=== PATIENT | male | born 1950 | race Caucasian/White ===

== ENCOUNTER 2019-10-21 06:22 | Inpatient (IN) | payer MEDICARE ==
--- NOTE | 2019-10-10 15:05 | HP ---
AMENDED REPORT NOW INCLUDES DESIGNATED COSIGNER CC: Dr. Davon Ferrell; Dr. Debbie Stanley * PREOPERATIVE HISTORY AND PHYSICAL: DATE OF ADMISSION/SURGERY: 10/21/19 This patient is scheduled for AA admission by Dr. Nieves on 10/21/19. DATE OF PREOPERATIVE HISTORY AND PHYSICAL EXAMINATION: , 10/10/19. ATTENDING SURGEON: Dr. Tejinder Nieves * (dictated by Rachael Carias NP). CHIEF COMPLAINT: Neuroendocrine tumor of the terminal ileum. HISTORY OF PRESENT ILLNESS: The patient is a 69-year-old male recently evaluated by Dr. Nieves with a newly diagnosed neuroendocrine tumor of the terminal ileum. This was found on routine screening colonoscopy on 09/10/19 as a firm, partially obstructing mass of the terminal ileum and biopsy revealed a neuroendocrine tumor. He denies any gastrointestinal complaints, specifically no diarrhea or constipation; he denies any flushing. He was seen by Dr. Debbie Stanley at [facility] and CT workup revealed multiple lung nodules bilaterally suspicious for metastatic disease and therefore, the patient is scheduled for CT -guided biopsy of the lung nodules on 10/14/19. Dr. Nieves has discussed the findings with the patient and has recommended robotic right colectomy; he discussed the nature of the surgery, the relevant risks and benefits and today, I discussed the typical postoperative hospitalization and care. The patient and his have had a chance to ask questions and stated that they understand the information and are satisfied with the answers given to their questions. The patient will sign surgical consent on the day of surgery. PAST MEDICAL HISTORY: Hypertension, hyperlipidemia, and mild asthma related to cat dander. PAST SURGICAL HISTORY: Zavalla teeth extraction. MEDICATIONS: 1. Atorvastatin 80 mg 1 tablet p.o. daily. 2. Lisinopril/hydrochlorothiazide 20/12.5 mg 1 tablet p.o. daily. 3. Flovent inhaler b.i.d. 4. ProAir inhaler 2 puffs every 4 hours p.r.n. ALLERGIES: No known drug allergies. FAMILY HISTORY: Father due to lung cancer. Mother with a history of diabetes. No known anesthesia complications, bleeding tendencies, or clotting disorders. SOCIAL HISTORY: He is . He has never been a smoker. He drinks alcohol socially and denies the use of other substances. REVIEW OF SYSTEMS: A 14-point review of systems was negative other than as mentioned in history of present illness. General: No previous anesthesia complications. No history of blood clots or bleeding tendencies. PHYSICAL EXAMINATION GENERAL SURVEY: The patient is a 69-year-old male, well developed, well nourished, in no acute distress. VITAL SIGNS: Height 72 inches, weight 176 pounds, body mass index 23.9. Blood pressure 142/84, pulse 84 and regular, respiratory rate 16, temperature 97.8 tympanic. HEENT: Benign. NECK: Supple. No cervical lymphadenopathy or thyromegaly. BACK: No CVA tenderness. LUNGS: Breath sounds bilaterally clear and equal. HEART: Regular rate and rhythm. No murmurs or rubs. ABDOMEN: Active bowel sounds. Soft, nondistended, nontender throughout. No obvious masses, organomegaly or evidence of ventral hernia. GENITALIA: Exam is deferred. RECTAL: Exam is deferred. EXTREMITIES: Warm without edema or skin ulceration. NEUROLOGIC: Alert and oriented x3. Steady gait. PSYCHIATRIC: Cooperative and verbalizes understanding of our discussion today. SKIN: Warm, dry, intact. IMPRESSION: Neuroendocrine tumor of the terminal ileum. PLAN: AA admission to Dr. Nieves's service on 10/21/19, for robotic right colectomy. The patient will take a bowel cleansing prep on the day before surgery consisting of clear liquid diet, CoLyte laxative, metronidazole, and neomycin tablets. CONCEPCION CARIAS NP [id number]/[facility] #: [id number] KALYN
[~2019-10-21 06:22] MED LIST: ERTApenem(*) 1 GM in NS 0.9% 50 ML* 50 ML IVPB SCH; Famotidine IV* 10 MG/ML 2 ML (20 mg) IV ONE
--- OUTSIDE RECORDS SUMMARY | 2019-10-21 06:25 | XMS REPORT | Continuity of Care Document ---
:1950 External Reference #:[id number] Author Name Tejinder Nieves MD (transmitted by agent of provider Jennyfer Jason) Address [address] [place] [id number] Care Team Providers Name Role Phone Davon Ferrell MD - Family Care Team Information Casino Cage Manager [phone] Medicine Problems Description No Information Available Social History Type Date Description Comments Sex Unknown ETOH Use consumes 4 beers per week Tobacco Use Start: Unknown Patient has never smoked Recreational Drug Use Denies Drug Use Smoking Status Reviewed: 10/03/19 Patient has never smoked Exercise Type/Frequency Exercises regularly Allergies, Adverse Reactions, Alerts Description No Known Drug Allergies Medications Active Medications SIG Qnty Indications Ordering Provider Date Atorvastatin Calcium 1 by mouth every Unknown 80mg day Tablets Lisinopril-Hydrochlorot 1 by mouth every Unknown hiazide day 20-12.5mg Tablets Flovent HFA 2 puffs twice Unknown 110mcg/Act daily Aerosol Proair HFA 2 puffs every 4 Unknown 108(90Base) hours as needed mcg/Act Aerosol Immunizations Description No Information Available Vital Signs Date Vital Result Comment 10/03/2019 2:27pm Height 72 inches 6'0" Weight 176.00 lb Heart Rate 84 /min BP Systolic Sitting 132 mmHg BP Diastolic Sitting 82 mmHg Respiratory Rate 16 /min Body Temperature 98.1 F BMI (Body Mass Index) 23.9 kg/m2 Results Description No Information Available Procedures Description No Information Available Medical Devices Description No Information Available Encounters Description No Information Available Assessments Description No Information Available Plan of Treatment No Information Available Functional Status Description No Information Available Mental Status Description No Information Available Referrals Description No Information Available
--- OUTSIDE RECORDS SUMMARY | 2019-10-21 06:25 | XMS REPORT | Continuity of Care Document ---
:1950 External Reference #:[id number] Author Name Rachael Mak NP (transmitted by agent of provider Deny Noel) Address [address] [place] [address] [place] [address] Care Team Providers Name Role Phone Davon Ferrell MD - Family Care Team Information Director Of Training [phone] Medicine Problems Description No Information Available Social History Type Date Description Comments Sex Unknown ETOH Use consumes 4 beers per week Tobacco Use Start: Unknown Patient has never smoked Recreational Drug Use Denies Drug Use Smoking Status Reviewed: 10/10/19 Patient has never smoked Exercise Type/Frequency Exercises regularly Allergies, Adverse Reactions, Alerts Description No Known Drug Allergies Medications Active Medications SIG Qnty Indications Ordering Provider Date Peg-3350/Electrolytes as directed on 4000ml Rachael B. 10/10/2019 day before KUSH Mak 236gm Solution Rec surgery Metronidazole 1 tablet by 3tabs Rachael B. 10/10/2019 500mg mouth at 1pm,2pm KUSH Mak Tablets and 11pm on the day before surgery Neomycin Sulfate 2 tabs at 6tabs Rachael B. 10/10/2019 500mg 1pm,2pm and 11pm Ecjayshree SALES TEAM MANAGER Tablets on the day before surgery Atorvastatin Calcium 1 by mouth every Unknown 80mg day Tablets Lisinopril-Hydrochloro 1 by mouth every Unknown thiazide day 20-12.5mg Tablets Flovent HFA 2 puffs twice Unknown 110mcg/Act daily Aerosol Proair HFA 2 puffs every 4 Unknown 108(90Base) hours as needed mcg/Act Aerosol Immunizations Description No Information Available Vital Signs Date Vital Result Comment 10/10/2019 1:02pm Height 72 inches 6'0" Weight 176.00 lb Heart Rate 84 /min BP Systolic Sitting 142 mmHg BP Diastolic Sitting 84 mmHg Respiratory Rate 16 /min Body Temperature 97.8 F BMI (Body Mass Index) 23.9 kg/m2 10/03/2019 2:27pm Height 72 inches 6'0" Weight 176.00 lb Heart Rate 84 /min BP Systolic Sitting 132 mmHg BP Diastolic Sitting 82 mmHg Respiratory Rate 16 /min Body Temperature 98.1 F BMI (Body Mass Index) 23.9 kg/m2 Results Description No Information Available Procedures Description No Information Available Medical Devices Description No Information Available Encounters Type Date Location Provider Dx Diagnosis Office Visit 10/03/2019 Surgical Tejinder Garcia C7A.012 Malignant 2:00p [facility] MD Ezequiel carcinoid tumor of the ileum Assessments Date Code Description Provider 10/10/2019 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 Rachael Mak NP 10/10/2019 Z01.818 Encounter for other preprocedural Rachael Mak NP examination 10/03/2019 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
--- OUTSIDE RECORDS SUMMARY | 2019-10-21 06:25 | XMS REPORT | Continuity of Care Document ---
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 discussed surgical risks ibnlt bleeding, infection, injury to bowel, ureter, anastomotic leak, others. he wishes to proceed, all questions answered. Functional Status Description No Information Available Mental Status Description No Information Available Referrals Description No Information Available
[2019-10-21] MEDS ORDERED: Buffered Lidocaine 1% SYRIN* 1 ML/SYRINGE INTRADERM ONE (06:40)
[2019-10-21] MEDS ORDERED: Heparin VIAL(*) 5000 UNITS/ML VIAL (FIVE THOUSAND) ONE (06:40)
[2019-10-21] MEDS ORDERED: Famotidine IV* 10 MG/ML 2 ML (20 mg) ONE (06:40)
[2019-10-21] MEDS: Lactated Ringers 1000 ML Bag* 1,000 ML IV SCH ×3 (06:56→15:13)
[2019-10-21] MEDS: Buffered Lidocaine 1% SYRIN* 1 ML/SYRINGE INTRADERM ONE ×2 (06:57→15:00)
[2019-10-21] MEDS ORDERED: Phenylephrine 10 MG/ML VIAL* 1 ML VIAL ONE (08:14)
[2019-10-21] MEDS ORDERED: Ondansetron INJ* 2 MG/ML VIAL ONE (08:14)
[2019-10-21] MEDS ORDERED: Dexamethasone IV* 4 MG/ML 1 ML (4 MG) ONE (08:14)
[2019-10-21] MEDS ORDERED: Lidocaine 2% PF * 5 ML VIAL ONE (08:14)
[2019-10-21] MEDS ORDERED: Propofol* 10 MG/ML 20 ML BTL ONE (08:14)
[2019-10-21] MEDS ORDERED: KETAMINE HCL* 50 MG/ML 10 ML VIAL ONE (08:15)
[2019-10-21] MEDS ORDERED: Midazolam* 1 MG/ML 5 ML VIAL (5 MG) ONE (08:15)
[2019-10-21] MEDS ORDERED: Rocuronium* 10 MG/ML VIAL ONE ×3 (08:15→12:08)
[2019-10-21] MEDS ORDERED: fentaNYL* 50 MCG/ML 2 ML VIAL (100 MCG VIAL) ONE ×3 (08:15→11:47)
[2019-10-21] MEDS ORDERED: Bupivacaine 0.5%* 50 ML MDV VIAL ONE (08:45)
[2019-10-21] MEDS ORDERED: ceFOXitin 2 GM IVPREMIX* 2 GM/50 ML BAG ONE (09:28)
[2019-10-21] MEDS ORDERED: EPHEDrine (Pressors)* 50 MG/ML VIAL ONE (10:07)
[2019-10-21] MEDS ORDERED: Ondansetron INJ* 2 MG/ML VIAL IV PRN ×2 (11:07→13:48)
[2019-10-21] MEDS ORDERED: Naloxone* 0.4 MG/ML 1 ML VIAL IV PRN (11:07)
[2019-10-21] MEDS ORDERED: fentaNYL* 50 MCG/ML 2 ML VIAL (100 MCG VIAL) IV PRN (11:07)
[2019-10-21] MEDS ORDERED: Acetaminophen IV 1GM/100ML * 100 ML ONE (11:31)
[2019-10-21] MEDS ORDERED: Ketorolac INJ* 30 MG/ML 1 ML VIAL ONE (11:31)
[2019-10-21] MEDS ORDERED: Sugammadex * 200 MG/2 ML VIAL IV PUSH ONE (13:02)
[2019-10-21] MEDS ORDERED: Acetaminophen TAB* 325 MG PO PRN (13:48)
[2019-10-21] MEDS ORDERED: Albuterol HFA INHALER* 8 gm MDI INH PRN (14:05)
[2019-10-21] MEDS: Heparin VIAL(*) 5000 UNITS/ML VIAL (FIVE THOUSAND) SUBCUT SCH ×2 (15:00→21:42)
[2019-10-21] MEDS: HYDROmorphone INJ1* 1 MG/ML SYRINGE IV SLOW PU PRN ×2 (17:10→22:17)
[2019-10-21] MEDS: oxyCODONE/Acetamin 5/325 MG* TAB PO PRN (19:41)
[2019-10-21] MEDS: Mometasone 220 MCG MDI INH SCH (19:53)
[2019-10-21] MEDS: Albuterol HFA INHALER* 8 gm MDI INH SCH (19:54)
[2019-10-21] MEDS ORDERED: FLOVENT 110 MCG INH SCH (21:00)
--- NOTE | 2019-10-22 00:33 | OP ---
OPERATIVE REPORT: DATE OF OPERATION: 10/21/19 - Inpatient, U 340-01 DATE OF : [birth year] SURGEON: Tejinder Nieves MD DIGITAL COLOR PRESS OPERATOR: TANISHA Gordon ANESTHESIOLOGIST: Wojciech Bo MD ANESTHESIA: General. PRE-OP DIAGNOSIS: Terminal ileal neuroendocrine tumor/carcinoid. POST-OP DIAGNOSIS: Terminal ileal neuroendocrine tumor/carcinoid. OPERATIVE PROCEDURE: Robotic right colectomy with intracorporeal anastomosis. INDICATIONS FOR PROCEDURE: Terminal ileal carcinoid tumor/neuroendocrine tumor. Risks of surgery included, but not limited to, bleeding, infection, anastomotic leak, injury to intraabdominal contents including the ureter, the liver, the bowel, other intraabdominal contents explained to the patient along with NM, pneumonia, PE, arrhythmia, and others. He seemed to understand, wished to proceed, and all questions were answered. DESCRIPTION OF PROCEDURE: The patient was taken to the operating room, placed supine. Preoperative antibiotics have been given. After the successful induction of general endotracheal anesthesia, the abdomen was prepped and draped in sterile fashion. The left upper quadrant trocar was placed under direct visualization of the camera using a bladeless Optiview trocar. Pneumoperitoneum was achieved to 15 mmHg. The camera was placed in the abdomen and the abdomen was scanned. There was no obvious injury from trocar placement. Then, in a line along the left side of the abdomen lateral to the midline, 3 more trocars were placed all about a hand width apart, a 12 mm robotic trocar, then two 8 mm robotic trocars. An assist port, 8 mm was placed in the left lower quadrant using the AirSeal trocar. One more 8 mm trocar had to be placed above the initial trocar placement to give more room between the trocars. The 5 mm trocar was removed. The skin was closed with a 3-0 nylon initially. Camera was placed in the abdomen. The omentum was brought up and over the transverse colon. Small bowel was brought down into the left lower quadrant. The robot was brought in and docked. Because of the need for changing position and rearranging bowel, robot was undocked. The camera was placed in laparoscopically, the bowel was run from the area of the ligament of Treitz down towards the terminal ileum to assure anatomy since the right colon, the cecum, and ascending colon all the way to the hepatic flexure were not initially visible and were retroperitoneal. Once the cecum was more clearly identified in the anatomy, the robot was brought in and docked. The omentum was retracted up and over to the left upper quadrant lifting up the transverse colon and identifying the duodenum. A window was made below the ileocolic pedicle, which was identified by elevating the mesentery where the terminal ileum and cecum met. The pedicle was divided using the vessel sealer. The plane was then developed keeping the retroperitoneum posterior and elevating the mesentery heading medially and identifying the duodenum. The dissection then turned laterally towards the right lifting the mesentery, keeping the retroperitoneum down, dissecting the area free from the cecum up the ascending colon to the hepatic flexure. A window was made to the right upper quadrant and the abdominal wall and liver could be visualized. The colon was then mobilized medially along the lateral peritoneal reflex just medial to the right lateral tilt. Thick peritoneum and adipose coming off the colon had covered the colon and once this was mobilized completely, visualization was easier. The mesentery was then taken from the division of the ileocolic vessels towards the terminal ileum and a larger than normal segment of terminal ileum was taken in order to ensure that the terminal ileal tumor was removed and there was a nice margin. Firefly was used to determine that there was good blood flow to the segments of the distal ileum that is going to be divided and this was divided with a stapler with a blue load, robotic. Mesentery was then taken up to the proximal transverse colon just distal to the hepatic flexure. Firefly was once again used. Good blood supply was noted to this area of the colon and this was divided with a blue load of the stapler. This took 2 loads of firing as the last half a centimeter had to be stapled in order to ensure a good staple line. The colon, right colon, terminal ileum were then freed from the rest of the surrounding tissue and placed up and over the liver. The right upper quadrant was irrigated and aspirated dry. Hemostasis was intact. The distal ileum was then brought up to the right upper quadrant, laid against the proximal transverse colon in a [id number] fashion. An enterotomy was made 2 cm proximal to the ileal staple line and another was made 6 cm distal to the colonic staple line and a beaf-sf-[id number] anastomosis was performed with a blue load stapler. The enterotomy was then closed using 2 layers with a running 3-0 Vicryl suture. This was assisted by placing a 2-0 Vicryl at each staple line as I met the enterotomy ensuring that the posterior suture line and anterior suture line were completely closed and there were no gaps and no enterotomy is noted. The omentum was laid back over the anastomosis. The abdomen was scanned intermittently throughout the case. No obvious injuries were noted. A large Endobag was then placed through the 12 mm port. Specimen was placed into an Endobag and the drawstring was then brought out through the lowest 8 mm trocar site in the midline or just off the midline in the lower abdomen. This trocar was removed after the drawstring was grasped and a Pfannenstiel incision was made, small about 3 cm in length. Opening the skin, taking the subcutaneous fat with Bovie cautery transversely opening the fascia the rectus muscle bluntly in the midline and taking the specimen out through this incision. Specimen was looked at at the side table and opened showing the tumor in the terminal ileum. The peritoneum was then closed in the Pfannenstiel incision using 3-0 Vicryl and the fascia was closed along with the muscle. The muscle with 3-0 Vicryl with 2 interrupted sutures. The fascia was closed with a 0 PDS suture in a running fashion. The wound was irrigated. Deep layer was closed with 3-0 Vicryl and the skin with 3-0 Monocryl. Pneumoperitoneum was reinstituted into the abdomen. The abdomen was once again scanned using laparoscopic instruments and the omentum was placed over the lower bowel as well. No blood was noted. No fluid. No injuries were noted. Pneumoperitoneum was released. The trocars were removed. All the sites were closed at the skin level with 3-0 Monocryl. Glue was applied to all the skin. The patient tolerated the procedure well. EBL approximately 25 cc. He was extubated and taken to Recovery in stable condition. [id number]/[facility] #: [id number] MTDD
[2019-10-22] MEDS: Lactated Ringers 1000 ML Bag* 1,000 ML IV SCH (02:15)
[2019-10-22] MEDS: oxyCODONE/Acetamin 5/325 MG* TAB PO PRN ×4 (02:29→14:29)
[2019-10-22 05:27] LABS: ABS Neutrophils 5.8 10^3/ul (1.5-7.7); Eosinophil % 0.1 %; Hematocrit 37 % (42-52); Hemoglobin 12.5 g/dL (14.0-18.0); Lymphocyte % 12.8 %; Mean Corpuscular HGB Conc 34 g/dL (31-36); Mean Corpuscular Hemoglobin 32 pg (27-31); Mean Corpuscular Volume 94 fL (80-94); Mean Platelet Volume 9.1 fL (7.4-10.4); Platelet Count 149 10^3/uL (150-450); Red Blood Count 3.93 10^6 /uL (4.18-5.48); Red Cell Distribution Width 13 % (10-15); White Blood Count 7.8 10^3/uL (3.5-10.8)
[2019-10-22] MEDS: Heparin VIAL(*) 5000 UNITS/ML VIAL (FIVE THOUSAND) SUBCUT SCH ×3 (05:37→21:46)
[2019-10-22 05:43] LABS: BUN/Creatinine Ratio 13.6 (8-20); Calcium 8.3 mg/dL (8.6-10.3); EGFR African American 103.6 (>60); EGFR Non-African American 85.6 (>60)
[2019-10-22] MEDS: HYDROmorphone INJ1* 1 MG/ML SYRINGE IV SLOW PU PRN (07:53)
[2019-10-22] MEDS: Albuterol HFA INHALER* 8 gm MDI INH SCH ×2 (08:51→19:07)
[2019-10-22] MEDS ORDERED: Lactated Ringers 1000 ML Bag* 1,000 ML IV SCH (09:00)
[2019-10-22] MEDS ORDERED: Lisinopril TAB* 10 MG PO SCH (09:00)
[2019-10-22] MEDS: Hydrochlorothiazide TAB* 25 MG PO SCH (09:37)
--- NOTE | 2019-10-22 11:27 | PN ---
Progress Note - Progress Note Date of Service: 10/22/19 SOAP: Subjective: NAD Ambulating well, + Flatus + BM tolerating clears, + void since removal of Akers [] Objective: Vital Signs Temp 97.3 F 10/22/19 07:52 Pulse 61 10/22/19 07:52 Resp 18 10/22/19 10:44 BP 124/71 10/22/19 07:52 Pulse Ox 97 10/22/19 08:00 Intake & Output 10/21/19 10/22/19 10/22/19 18:59 06:59 18:59 Intake Total 200 2780 1790 Output Total 1050 300 Balance 200 1730 1490 Intake: IV Fluids 200 980 980 ENTRAPENEM 1 GRAM 100 LR 980 980 NS 100ML, Cefoxitin 2G 100 Oral 1800 810 Output: Urine 50 Akers 1050 250 Other: Date of Last Bowel 10/22/19 Movement # Bowel Movements 1 Estimated Stool Amount Small WBC 10/22/19 04:59 WBC 7.8 10^3/uL 10^3/uL (3.5-10.8) PEX GEN: NAD Chest: CTA B/L CVS: RRR ABD: incisions C/D/I, soft, + BS's ND/NT EXT: calves soft, non tender [] Assessment: POD 1 S/P Robotic Right Colectomy [] Plan: Hep Lock IV, advance to fulls, Incentive Spirometry encouraged deep breathing, D/C planning Above D/W Dr Nieves []
[2019-10-22] MEDS: Mometasone 220 MCG MDI INH SCH (17:36)
[2019-10-23] MEDS: Heparin VIAL(*) 5000 UNITS/ML VIAL (FIVE THOUSAND) SUBCUT SCH (05:50)
[2019-10-23] MEDS: Albuterol HFA INHALER* 8 gm MDI INH SCH (07:57)
[2019-10-23 08:17] VITALS: BP 147/62
[2019-10-23] MEDS ORDERED: Lisinopril TAB* 10 MG PO SCH (09:00)
--- NOTE | 2019-10-23 09:28 | PN ---
Progress Note - Progress Note Date of Service: 10/23/19 SOAP: Subjective: Has flatus and BM. No need for narcotics. Voiding plenty and macie po. Objective: Vital Signs Temp 99 F 10/23/19 08:16 Pulse 101 10/23/19 08:16 Resp 16 10/23/19 08:16 BP 147/62 10/23/19 08:16 Pulse Ox 94 10/23/19 08:16 Gen: NAD Chest: CTAB; reg s1s2 Abd: incis c/d/i; no erythema; +BS; soft; ND; NT. Intake & Output 10/22/19 10/23/19 10/23/19 18:59 06:59 18:59 Intake Total 2600 800 Output Total 1100 2050 Balance 1500 -1250 Intake: IV Fluids 980 LR 980 Oral 1620 800 Output: Urine 850 2050 Akers 250 Other: Date of Last Bowel 10/22/19 Movement # Bowel Movements 1 Estimated Stool Amount Small Assessment: POD#2 s/p lap R colon. Stable for d/c. Plan: D/c home. Adv diet. F/u with Ezequiel in office.
[2019-10-23] MEDS ORDERED: Ibuprofen TAB* 600 MG PO ONE (09:30)
[2019-10-23] MEDS: Hydrochlorothiazide TAB* 25 MG PO SCH (10:19)
== END 2019-10-23 10:30 | disposition home or self-care (01) | DRG 331 ==
LOC: AA 06:22 → SSU 13:48
PROVIDERS: ADMIT Surgery; ATTEND Surgery
PROC: 8E0W4CZ Robotic Assisted Procedure of Trunk Region, Percutaneous Endoscopic Approach (ICD-10-PCS; 2019-10-21)
PROC: 0DTF4ZZ Resection of Right Large Intestine, Percutaneous Endoscopic Approach (ICD-10-PCS; principal; 2019-10-21 08:15)
DX: C7A.012 Malignant carcinoid tumor of the ileum (principal); I10 Essential (primary) hypertension; E78.5 Hyperlipidemia, unspecified; J45.909 Unspecified asthma, uncomplicated; K21.9 Gastro-esophageal reflux disease without esophagitis; N40.0 Benign prostatic hyperplasia without lower urinary tract symptoms
CPT/HCPCS: 36415; 80048; 85025; 88309; 94640; A9270-GY; J0694; J1100; J1170; J1335; J1644; J1885; J2250; J2405; J2704; J3010; J3490